=== PATIENT | male | born 1990 | race Caucasian/White ===

== ENCOUNTER 2017-10-13 17:50 | Emergency (ER) | payer BC ==
[2017-10-13] MEDS ORDERED: Sodium Chloride 0.9% 10 ML Syringe FLUSH PRN (18:19)
[2017-10-13] MEDS ORDERED: Sodium Chloride 0.9% 2.5 ML Syringe FLUSH PRN (18:19)
[2017-10-13] MEDS ORDERED: MVI, Adult with Vitamin K 10 ML, Thiamine 100 MG, Folic Acid 1 MG in Sodium Chloride 0.... IV ONE ×4 (18:20)
--- NOTE | 2017-10-13 18:23 | EDM.PDOCBH ---
ED HPI GENERAL MEDICAL PROBLEM - General Chief Complaint: Drug or Alcohol Abuse Stated Complaint: ALCOHOL WITHDRAWALS Time Seen by Provider: 10/13/17 18:21 Source of Information: Reports: Patient History Limitations: Reports: No Limitations - History of Present Illness INITIAL COMMENTS - FREE TEXT/NARRATIVE: HISTORY AND PHYSICAL: []27-year-old male who has history of alcohol abuse he has been in treatment twice in [facility] reports to the emergency department today for help with his withdrawal symptoms History of Present Illness: []Patient has been drinking beer and vodka today to help "control his shakes" His girlfriend is at bedside Last treatment was in [place] in December and he started drinking in February and has been drinking off and on since then. Review of Systems: As per history of present illness and below otherwise all systems reviewed and negative. Past medical history: As per history of present illness and as reviewed below otherwise noncontributory. Surgical history: As per history of present illness and as reviewed below otherwise noncontributory. Social history: No reported history of drug or alcohol abuse. Family history: As per history of present illness and as reviewed below otherwise noncontributory. Physical exam: Alert gentleman who smells strongly of alcohol and appears intoxicated. He is answering questions appropriately to says that he wants help with the withdrawal symptoms he is having, but does not want to go back to treatment. HEENT: Atraumatic, normocehpalic, pupils reactive, negative for conjunctival pallor or scleral icterus, mucous membranes moist, throat clear, neck supple, nontender, trachea midline. Lungs: Clear to auscultation, breath sounds equal bilaterally, chest non tender. Heart: S1S2, regular, negative for clicks, rubs, or JVD. Abdomen: Soft, nondistended, nontender. Negative for masses or hepatossplenmegaly. Negative for costovertebral tenderness. Pelvis: Stable nontender. Genitourinary: Deferred. Rectal: Deferred Extremities: Atraumatic, negative for cords or calf pain. Neurovascular unremarkable. Neuro: Awake, alert, oriented. Cranial nerves II through XII unremarkable. Cerebellum unremarkable. Motor and sensory unremarkable throughout. Exam nonfocal. Discussed case with patient he does not want to go back through treatment Diagnostics: []CBC CMP P amylase lipase UA urine drug screen Therapeutics: []Banana Bag Impression: [Alcohol withdrawal] Plan: []Discharge to home Definitive disposition and diagnosis as appropriate pending reevaluation and review of above. no pain Pain Score (Numeric/FACES): 0 - Related Data Allergies Allergy/AdvReac Type Severity Reaction Status Date / Time No Known Allergies Allergy Verified 10/13/17 17:54 Home Meds: Home Meds . [No Known Home Meds] 10/13/17 [History] Past Medical History HEENT History: Reports: None Cardiovascular History: Reports: None Respiratory History: Reports: None Gastrointestinal History: Reports: None Genitourinary History: Reports: None Musculoskeletal History: Reports: None Neurological History: Reports: None Psychiatric History: Reports: Addiction, Anxiety, Depression Endocrine/Metabolic History: Reports: None Hematologic History: Reports: None Immunologic History: Reports: None Oncologic (Cancer) History: Reports: None Dermatologic History: Reports: None - Infectious Disease History Infectious Disease History: Reports: None - Past Surgical History Head Surgeries/Procedures: Reports: None Musculoskeletal Surgical History: Reports: Other (See Below) Other Musculoskeletal Surgeries/Procedures:: left leg surgery Social & Family History - Family History Family Medical History: Noncontributory - Tobacco Use Smoking Status *Q: Never Smoker - Caffeine Use Caffeine Use: Reports: Coffee - Recreational Drug Use Recreational Drug Use: No ED ROS GENERAL - Review of Systems Review Of Systems: ROS reveals no pertinent complaints other than HPI. ED EXAM, BEHAVIORAL HEALTH - Physical Exam Exam: See Below (See dictation) COURSE, BEHAVIORAL HEALTH COMP - Course Vital Signs: Last Vital Signs Temp 36.6 C 10/13/17 17:59 Pulse 102 H 10/13/17 20:20 Resp 18 10/13/17 20:20 BP 122/64 10/13/17 20:20 Pulse Ox 94 L 10/13/17 20:20 Orders, Labs, Meds: Active Orders 24 hr Category Date Time Status EKG Documentation Completion [RC] STAT Care 10/13/17 18:19 Active MVI, Adult with Vitamin K [Infuvite Adult] 10 ml Med 10/13/17 18:20 Active Thiamine [Vitamin B-1] 100 mg Folic Acid 1 mg Sodium Chloride 0.9% [Normal Saline] 1,000 ml IV ONETIME Sodium Chloride 0.9% [Saline Flush] Med 10/13/17 18:19 Active 10 ml FLUSH ASDIRECTED PRN Sodium Chloride 0.9% [Saline Flush] Med 10/13/17 18:19 Active 2.5 ml FLUSH ASDIRECTED PRN Saline Lock Insert [OM.PC] Stat Oth 10/13/17 18:19 Ordered Medication Orders Multivitamins/Minerals 10 ml/Thiamine HCl 100 mg/ Folic Acid 1 mg/ Sodium Chloride 1,011.2 mls @ 250 mls/hr IV ONETIME ONE Stop: 10/13/17 22:22 Last Admin: 10/13/17 18:45 Dose: 250 mls/hr Sodium Chloride (Saline Flush) 10 ml FLUSH ASDIRECTED PRN PRN Reason: Keep Vein Open Sodium Chloride (Saline Flush) 2.5 ml FLUSH ASDIRECTED PRN PRN Reason: Keep Vein Open Laboratory Tests 10/13/17 10/13/17 Range/Units 18:28 18:28 WBC 5.22 (4.0-11.0) K/uL RBC 5.24 (4.50-5.90) M/uL Hgb 16.7 (13.0-17.0) g/dL Hct 48.4 (38.0-50.0) % MCV 92.4 (80.0-98.0) fL MCH 31.9 (27.0-32.0) pg MCHC 34.5 (31.0-37.0) g/dL RDW Std Deviation 42.3 (28.0-62.0) fl RDW Coeff of Catalino 13 (11.0-15.0) % Plt Count 329 (150-400) K/uL MPV 10.10 (7.40-12.00) fL Neut % (Auto) 39.3 L (48.0-80.0) % Lymph % (Auto) 51.3 H (16.0-40.0) % [place] % (Auto) 6.9 (0.0-15.0) % Eos % (Auto) 1.5 (0.0-7.0) % Baso % (Auto) 1.0 (0.0-1.5) % Neut # (Auto) 2.1 (1.4-5.7) K/uL Lymph # (Auto) 2.7 H (0.6-2.4) K/uL [place] # (Auto) 0.4 (0.0-0.8) K/uL Eos # (Auto) 0.1 (0.0-0.7) K/uL Baso # (Auto) 0.1 (0.0-0.1) K/uL Nucleated RBC % 0.0 /100WBC Nucleated RBCs # 0 K/uL Sodium 146 (136-146) mmol/L Potassium 3.6 (3.5-5.1) mmol/L Chloride 111 H (98-110) mmol/L Carbon Dioxide 20 L (21-31) mmol/L BUN 5 L (6.0-23.0) mg/dL Creatinine 0.8 (0.6-1.5) mg/dL Est Cr Clr Drug Dosing 154.93 mL/min Estimated GFR (MDRD) > 60.0 ml/min Glucose 129 H (60-110) mg/dL Calcium 9.0 (8.8-10.8) mg/dL Total Bilirubin 0.3 (0.1-1.5) mg/dL AST 44 H (5-40) IU/L ALT 32 (8-54) IU/L Alkaline Phosphatase 118 (40-150) Total Protein 8.1 H (6.0-8.0) g/dL Albumin 4.7 (3.5-5.0) g/dL Globulin 3.4 (2.0-3.5) g/dL Albumin/Globulin Ratio 1.4 (1.3-2.8) Amylase 35 (10-90) U/L Lipase 36 (7-80) U/L Medications Generic Name Dose Route Start Last Admin Trade Name Freq PRN Reason Stop Dose Admin Multivitamins/Minerals 10 ml/ 1,011.2 mls @ 250 mls/hr 10/13/17 18:20 18:45 Thiamine HCl 100 mg/ Folic IV 10/13/17 22:22 250 mls/hr Acid 1 mg/ Sodium Chloride ONETIME ONE Administration Sodium Chloride 10 ml 10/13/17 18:19 Saline Flush FLUSH ASDIRECTED PRN Keep Vein Open Sodium Chloride 2.5 ml 10/13/17 18:19 Saline Flush FLUSH ASDIRECTED PRN Keep Vein Open Discontinued Medications Generic Name Dose Route Start Last Admin Trade Name Freq PRN Reason Stop Dose Admin Lorazepam 1 mg 10/13/17 19:19 10/13/17 19:28 Ativan IVPUSH 10/13/17 19:20 1 mg ONETIME ONE Administration Departure - Departure Time of Disposition: 21:39 Disposition: Home, Self-Care 01 Condition: Good Clinical Impression: Alcohol abuse - Discharge Information Instructions: Alcohol Use Disorder, Alcohol Intoxication, [id number] Referrals: PCP,None [Primary Care Provider] - Forms: ED Department Discharge Additional Instructions: The following information is given to patients seen in the emergency department who are being discharged to home. This information is to outline your options for follow-up care. We provide all patients seen in our emergency department with a follow-up referral. The need for follow-up, as well as the timing and circumstances, are variable depending upon the specifics of your emergency department visit. If you don't have a primary care physician on staff, we will provide you with a referral. We always advise you to contact your personal physician following an emergency department visit to inform them of the circumstance of the visit and for follow-up with them and/or the need for any referrals to a consulting specialist. The emergency department will also refer you to a specialist when appropriate. This referral assures that you have the opportunity for followup care with a specialist. All of these measure are taken in an effort to provide you with optimal care, which includes your followup. Under all circumstances we always encourage you to contact your private physician who remains a resource for coordinating your care. When calling for followup care, please make the office aware that this follow-up is from your recent emergency room visit. If for any reason you are refused follow-up, please contact the [facility] emergency department at and asked to speak to the emergency department charge nurse. Consider going back to alcohol treatment center [facility] does have a facility that will this - My Orders Last 24 Hours: My Active Orders 10/13/17 18:19 EKG Documentation Completion [RC] STAT Sodium Chloride 0.9% [Saline Flush] 10 ml FLUSH ASDIRECTED PRN Sodium Chloride 0.9% [Saline Flush] 2.5 ml FLUSH ASDIRECTED PRN Saline Lock Insert [OM.PC] Stat 10/13/17 18:20 MVI, Adult with Vitamin K [Infuvite Adult] 10 ml Thiamine [Vitamin B-1] 100 mg Folic Acid 1 mg Sodium Chloride 0.9% [Normal Saline] 1,000 ml IV ONETIME - Assessment/Plan Last 24 Hours: My Active Orders 10/13/17 18:19 EKG Documentation Completion [RC] STAT Sodium Chloride 0.9% [Saline Flush] 10 ml FLUSH ASDIRECTED PRN Sodium Chloride 0.9% [Saline Flush] 2.5 ml FLUSH ASDIRECTED PRN Saline Lock Insert [OM.PC] Stat 10/13/17 18:20 MVI, Adult with Vitamin K [Infuvite Adult] 10 ml Thiamine [Vitamin B-1] 100 mg Folic Acid 1 mg Sodium Chloride 0.9% [Normal Saline] 1,000 ml IV ONETIME
[2017-10-13 19:02] LABS: CHLORIDE,CL 111 mmol/L (98-110); SODIUM,NA 146 mmol/L (136-146)
[2017-10-13] MEDS ORDERED: LORazepam 2 MG/ML SDV IVPUSH ONE (19:19)
== END 2017-10-13 22:25 | disposition home or self-care (01) ==
LOC: MW.ED 17:50
DX: F10.230 Alcohol dependence with withdrawal, uncomplicated (principal)
CPT/HCPCS: 36415; 80053; 82150; 83690; 85025; 93005; 96365; 96366; 96375; 99285; J2060; J3411; J7040; 99282

== ENCOUNTER 2018-01-22 02:53 | Observation (INO) | payer BC ==
--- NOTE | 2018-01-22 02:57 | EDM.PDOC ---
ED HPI GENERAL MEDICAL PROBLEM - General Stated Complaint: INTOXICATION Time Seen by Provider: 01/22/18 02:56 Source of Information: Reports: Patient, EMS - History of Present Illness INITIAL COMMENTS - FREE TEXT/NARRATIVE: HISTORY AND PHYSICAL: History of present illness: [Patient with anxiety presents by EMS with a complaint of alcohol intoxication and anxiety Patient admits to drinking 4 beers since 7 PM he does not have any complaints such as fever nausea vomiting diarrhea constipation chest pain shortness breath headache dizziness palpitation no bowel or urine symptoms Is been alert and talkative up into the bathroom several times during his stay in no apparent distress he does not appear anxious whatsoever ] Review of systems: As per history of present illness and below otherwise all systems reviewed and negative. Past medical history: As per history of present illness and as reviewed below otherwise noncontributory. Surgical history: As per history of present illness and as reviewed below otherwise noncontributory. Social history: No reported history of drug or alcohol abuse. Family history: As per history of present illness and as reviewed below otherwise noncontributory. Physical exam: HEENT: Atraumatic, normocephalic, pupils reactive, negative for conjunctival pallor or scleral icterus, mucous membranes moist, throat clear, neck supple, nontender, trachea midline. Lungs: Clear to auscultation, breath sounds equal bilaterally, chest nontender. Heart: S1S2, regular, negative for clicks, rubs, or JVD. Abdomen: Soft, nondistended, nontender. Negative for masses or hepatosplenomegaly. Negative for costovertebral tenderness. Pelvis: Stable nontender. Genitourinary: Deferred. Rectal: Deferred. Extremities: Atraumatic, negative for cords or calf pain. Neurovascular unremarkable. Neuro: Awake, alert, oriented. Cranial nerves II through XII unremarkable. Cerebellum slightly ataxic gait Motor and sensory unremarkable throughout. Exam nonfocal. Diagnostics: [CBC CMP UA lipase troponin EKG Chest [address] no contrast ] Therapeutics: [Liter normal saline bolus ] Impression: [Anxiety Medication noncompliance Alcohol intoxication] Abrasion/contusion left forehead Definitive disposition and diagnosis as appropriate pending reevaluation and review of above. - Related Data Allergies Allergy/AdvReac Type Severity Reaction Status Date / Time No Known Allergies Allergy Verified 10/13/17 17:54 Home Meds: Home Meds . [No Known Home Meds] 10/13/17 [History] Past Medical History HEENT History: Reports: None Cardiovascular History: Reports: None Respiratory History: Reports: None Gastrointestinal History: Reports: None Genitourinary History: Reports: None Musculoskeletal History: Reports: None Neurological History: Reports: None Psychiatric History: Reports: Addiction, Anxiety, Depression Endocrine/Metabolic History: Reports: None Hematologic History: Reports: None Immunologic History: Reports: None Oncologic (Cancer) History: Reports: None Dermatologic History: Reports: None - Infectious Disease History Infectious Disease History: Reports: None - Past Surgical History Head Surgeries/Procedures: Reports: None Musculoskeletal Surgical History: Reports: Other (See Below) Other Musculoskeletal Surgeries/Procedures:: left leg surgery Social & Family History - Family History Family Medical History: Noncontributory - Tobacco Use Smoking Status *Q: Never Smoker - Caffeine Use Caffeine Use: Reports: Coffee - Recreational Drug Use Recreational Drug Use: No ED ROS GENERAL - Review of Systems Review Of Systems: ROS reveals no pertinent complaints other than HPI. ED EXAM, GENERAL - Physical Exam Exam: See Below Course - Vital Signs Last Recorded V/S: Last Vital Signs Temp 98.1 F 01/22/18 02:53 Pulse 111 H 01/22/18 02:53 Resp 18 01/22/18 02:53 BP 157/81 H 01/22/18 02:53 Pulse Ox 96 01/22/18 02:53 - Orders/Labs/Meds Orders: Active Orders 24 hr Category Date Time Status EKG Documentation Completion [RC] STAT Care 01/22/18 02:55 Active Vaccines to be Administered [RC] PER UNIT ROUTINE Care 01/22/18 03:00 Active Chest 1V Frontal [CR] Stat Exams 01/22/18 02:55 Taken Head wo Cont [CT] Stat Exams 01/22/18 03:00 Taken Sodium Chloride 0.9% [Normal Saline] 500 ml Med 01/22/18 03:00 Active IV STAT Medication Orders Sodium Chloride (Normal Saline) 500 mls @ 999 mls/hr IV STAT BIBI Last Admin: 01/22/18 03:37 Dose: 999 mls/hr Labs: Laboratory Tests 01/22/18 01/22/18 01/22/18 Range/Units 03:00 03:03 03:03 WBC 4.61 (4.0-11.0) K/uL RBC 4.99 (4.50-5.90) M/uL Hgb 15.8 (13.0-17.0) g/dL Hct 45.6 (38.0-50.0) % MCV 91.4 (80.0-98.0) fL MCH 31.7 (27.0-32.0) pg MCHC 34.6 (31.0-37.0) g/dL RDW Std Deviation 41.1 (28.0-62.0) fl RDW Coeff of Catalino 12 (11.0-15.0) % Plt Count 268 (150-400) K/uL MPV 10.40 (7.40-12.00) fL Neut % (Auto) 42.0 L (48.0-80.0) % Lymph % (Auto) 46.0 H (16.0-40.0) % [place] % (Auto) 8.7 (0.0-15.0) % Eos % (Auto) 2.4 (0.0-7.0) % Baso % (Auto) 0.9 (0.0-1.5) % Neut # (Auto) 1.9 (1.4-5.7) K/uL Lymph # (Auto) 2.1 (0.6-2.4) K/uL [place] # (Auto) 0.4 (0.0-0.8) K/uL Eos # (Auto) 0.1 (0.0-0.7) K/uL Baso # (Auto) 0.0 (0.0-0.1) K/uL Nucleated RBC % 0.0 /100WBC Nucleated RBCs # 0 K/uL Sodium 148 (136-148) mmol/L Potassium 4.0 (3.5-5.1) mmol/L Chloride 110 H (98-107) mmol/L Carbon Dioxide 25.2 (21.0-32.0) mmol/L BUN 9 (7.0-18.0) mg/dL Creatinine 0.8 (0.8-1.3) mg/dL Est Cr Clr Drug Dosing 150.34 mL/min Estimated GFR (MDRD) > 60.0 ml/min Glucose 100 (74-106) mg/dL Calcium 8.4 L (8.5-10.1) mg/dL Total Bilirubin 0.1 L (0.2-1.0) mg/dL AST 23 (15-37) U/L ALT 26 (14-63) U/L Alkaline Phosphatase 91 (46-116) U/L Troponin I < 0.050 (0.000-0.056) ng/mL Total Protein 8.1 (6.4-8.2) g/dL Albumin 4.6 (3.4-5.0) g/dL Globulin 8.1 H (2.0-3.5) g/dL Albumin/Globulin Ratio 0.0 L (1.3-2.8) Lipase 121 (73-393) U/L Urine Color YELLOW Urine Appearance CLEAR Urine pH 6.0 (5.0-8.0) Ur Specific [place] <= 1.005 (1.001-1.035) Urine Protein NEGATIVE (NEGATIVE) mg/dL Urine Glucose (UA) NEGATIVE (NEGATIVE) mg/dL Urine Ketones NEGATIVE (NEGATIVE) mg/dL Urine Occult Blood TRACE-INTACT (NEGATIVE) Urine Nitrite NEGATIVE (NEGATIVE) Urine Bilirubin NEGATIVE (NEGATIVE) Urine Urobilinogen 0.2 (<2.0) EU/dL Ur Leukocyte Esterase NEGATIVE (NEGATIVE) Urine RBC 0-1 (0-2/HPF) Urine WBC 0-1 (0-5/HPF) Ur Epithelial Cells RARE (NONE-FEW) Urine Bacteria RARE (NEGATIVE) Ethyl Alcohol 379 mg/dL Meds: Medications Generic Name Dose Route Start Last Admin Trade Name Freq PRN Reason Stop Dose Admin Sodium Chloride 500 mls @ 999 mls/hr 01/22/18 03:00 01/22/18 03:37 Normal Saline IV 999 mls/hr STAT BIBI Administration Discontinued Medications Generic Name Dose Route Start Last Admin Trade Name Freq PRN Reason Stop Dose Admin Diphtheria/Tetanus/Acell Pertussis 0.5 ml 01/22/18 03:00 01/22/18 03:39 Adacel IM 01/22/18 03:01 0.5 ml .ONCE ONE Administration Departure - Departure Time of Disposition: 04:50 Disposition: Refer to Observation Condition: Fair Clinical Impression: Alcohol intoxication - Discharge Information Referrals: PCP,None [Primary Care Provider] - - My Orders Last 24 Hours: My Active Orders 01/22/18 02:55 EKG Documentation Completion [RC] STAT Chest 1V Frontal [CR] Stat 01/22/18 03:00 Vaccines to be Administered [RC] PER UNIT ROUTINE Head wo Cont [CT] Stat Sodium Chloride 0.9% [Normal Saline] 500 ml IV STAT - Assessment/Plan Last 24 Hours: My Active Orders 01/22/18 02:55 EKG Documentation Completion [RC] STAT Chest 1V Frontal [CR] Stat 01/22/18 03:00 Vaccines to be Administered [RC] PER UNIT ROUTINE Head wo Cont [CT] Stat Sodium Chloride 0.9% [Normal Saline] 500 ml IV STAT
[2018-01-22] MEDS ORDERED: Sodium Chloride 0.9% 500 ML IV SCH (03:00)
[2018-01-22] MEDS ORDERED: Diphtheria,Pertussis(Acell),Tetanus Vaccine 0.5 ML Syringe IM ONE (03:00)
[2018-01-22 03:36] LABS: CHLORIDE,CL 110 mmol/L (98-107); SODIUM,NA 148 mmol/L (136-148)
[2018-01-22] MEDS ORDERED: MVI, Adult with Vitamin K 10 ML, Thiamine 100 MG, Folic Acid 1 MG in Sodium Chloride 0.... IV ONE ×4 (05:46)
--- NOTE | 2018-01-22 09:12 | PCM.HP ---
H&P History of Present Illness - General Date of Service: 01/22/18 Admit Problem/Dx: Admission Diagnosis/Problem Admission Diagnosis/Problem Alcohol intoxication Source of Information: Patient History Limitations: Reports: No Limitations - History of Present Illness Initial Comments - Free Text/Narative: This 27 year old male with pmh of alcohol abuse who recently finished a 30 day inpatient treatment program and [facility] presented to the ED last evening with EMS. He reports he was drinking all day with co-workers since it was a day. He does not remember falling but awoke and felt his head was pounding and he had an abrasion. He wanted to be checked out. He came to the ED and reportedly passed out in the ED. This morning he doesn't remember much from yesterday or last night. he remembers he came in to the ED because he fell and hit his head, again does not know how he fell nor does he recall it. He is feeling ill, hung over this morning. He reports he recently finished a 30 day inpatient treatment program for alcohol abuse and knows he needs to continue with sobriety but with the social pressures around him it is hard. He is well aware of the community resources of AA meetings, [facility]. He denies wanting placement in inpatient rehab currently this admission. He denies headache, more pain to abrasion on L forehead, no blurred vision, double vision. No nausea or vomiting. No chest pain or SOB. No abdominal pain or black or bloody BMs. He denies fevers at home. No other pain to legs or arms from fall. In the ED labwork WNL, Ua negative as well as U tox ETOH 379. Head CT negative for acute intracranial abnormality. and CXR negative as well. He was given bolus of IVFs in ED and admitted for observation after passing out in ED. He reports he should be taking Sertraline, which he was given after treatment. But he has not started taking it because he was told not to drink with it and wanted to continue to have a few drinks every once and while. - Related Data Allergies/Adverse Reactions: Allergies Allergy/AdvReac Type Severity Reaction Status Date / Time No Known Allergies Allergy Verified 10/13/17 17:54 Home Medications: Home Meds . [No Known Home Meds] 10/13/17 [History] Past Medical History HEENT History: Reports: None Cardiovascular History: Reports: Heart Murmur. Denies: Afib, Blood Clots/VTE/ DVT, High Cholesterol, Hypertension Respiratory History: Reports: None. Denies: Asthma, COPD, PE Gastrointestinal History: Reports: None. Denies: GERD, GI Bleed Genitourinary History: Reports: None. Denies: Chronic Renal Insuffiency Musculoskeletal History: Reports: None Neurological History: Reports: None. Denies: CVA, TIA Psychiatric History: Reports: Addiction, Anxiety, Depression Endocrine/Metabolic History: Reports: None. Denies: Diabetes, Type II Hematologic History: Reports: None Immunologic History: Reports: None Oncologic (Cancer) History: Reports: None Dermatologic History: Reports: None - Infectious Disease History Infectious Disease History: Reports: Chicken Pox - Past Surgical History Head Surgeries/Procedures: Reports: None Cardiovascular Surgical History: Reports: None Respiratory Surgical History: Reports: None GI Surgical History: Reports: None Male Surgical History: Reports: None Endocrine Surgical History: Reports: None Neurological Surgical History: Reports: Discectomy Musculoskeletal Surgical History: Reports: Other (See Below) Other Musculoskeletal Surgeries/Procedures:: left hand surgery, back surgery Social & Family History - Family History Family Medical History: Noncontributory - Tobacco Use Smoking Status *Q: Current Status Unknown Years of Tobacco use: 5 Used Tobacco, but Quit: No Month Tobacco Last Used: yesterday Tobacco Use Comment: chewing tobacco everyday, 1 can a day Second Hand Smoke Exposure: Yes - Caffeine Use Caffeine Use: Reports: Coffee, Soda - Alcohol Use Days Per Week of Alcohol Use: 4 Number of Drinks Per Day: 4 Total Drinks Per Week: 16 Date of Last Drink: 01/22/18 Time of Last Drink: 02:00 Alcohol Use Frequency: Daily - Recreational Drug Use Recreational Drug Use: No - Living Situation & Occupation Living situation: Reports: Occupation: Employed (works on a work over [employer] H&P Review of Systems - Review of Systems: Review Of Systems: See Below General: Reports: Malaise (feels hungover. "I've felt better"). Denies: Fever, Weakness HEENT: Reports: Other (pain to L forehead where abrasion is located). Denies: Headaches, Sinus Congestion Pulmonary: Reports: No Symptoms. Denies: Shortness of Breath Cardiovascular: Reports: No Symptoms. Denies: Chest Pain Gastrointestinal: Reports: No Symptoms. Denies: Abdominal Pain, Black Stool, Bloody Stool, Nausea Genitourinary: Reports: No Symptoms. Denies: Dysuria, Frequency, Burning, Pain Musculoskeletal: Reports: No Symptoms. Denies: Neck Pain, Back Pain, Leg Pain Psychiatric: Reports: No Symptoms. Denies: Confusion Neurological: Reports: No Symptoms. Denies: Confusion, Dizziness, Headache Exam - Exam Exam: See Below - Vital Signs Vital Signs: Last Vital Signs Temp 97.3 F 01/22/18 08:00 Pulse 87 01/22/18 08:00 Resp 20 01/22/18 08:00 BP 131/69 01/22/18 08:00 Pulse Ox 97 01/22/18 08:00 Weight: 88 kg - Exam General: Alert, Oriented, Cooperative HEENT: Conjunctiva Clear, Mucosa Moist & [place], Posterior Pharynx Clear Neck: Supple Lungs: Clear to Auscultation, Normal Respiratory Effort Cardiovascular: Regular Rate, Regular Rhythm, Systolic Murmur Extremities: Normal Inspection, Normal Range of Motion, Non-Tender, No Pedal Edema, Normal Capillary Refill Skin: Wound (abrasion, 0.5 in in circumference to L forehead near hairline. scant swelling noted, no drainage, fluctuance or erythema. Tenderness with palpation.) Neuro Extensive - Mental Status: Alert, Oriented x3, Normal Mood/Affect, Normal Cognition Neuro Extensive - Motor, Sensory, Reflexes: CN II-XII Intact Psychiatric: Alert, Normal Affect, Normal Mood - Patient Data Result Diagrams: 01/22/18 03:03 01/22/18 03:03 *Q Meaningful Use (ADM) - VTE *Q VTE Criteria *Q: - Stroke *Q Stroke Criteria *Q: - AMI *Q AMI Criteria *Q: - Problem List (1) Alcohol intoxication SNOMED Code(s): 87496558 ICD Code: F10.929 - ALCOHOL USE, UNSPECIFIED WITH INTOXICATION, UNSPECIFIED Status: Acute Current Visit: Yes Qualifiers: Complication of substance-induced condition: uncomplicated Qualified Code(s ): F10.920 - Alcohol use, unspecified with intoxication, uncomplicated (2) Forehead abrasion SNOMED Code(s): 880176211 ICD Code: S00.81XA - ABRASION OF OTHER PART OF HEAD, INITIAL ENCOUNTER Status: Acute Current Visit: Yes (3) Alcohol abuse SNOMED Code(s): 75239889 ICD Code: F10.10 - ALCOHOL ABUSE, UNCOMPLICATED Status: Chronic Current Visit: No (4) Generalized anxiety disorder SNOMED Code(s): 39711989 ICD Code: F41.1 - GENERALIZED ANXIETY DISORDER Status: Chronic Current Visit: Yes Problem List Initiated/Reviewed/Updated: Yes Orders Last 24hrs: Active Orders 24 hr Category Date Time Status Regular Diet [DIET] Diet 01/22/18 Breakfast Active MVI, Adult with Vitamin K [Infuvite Adult] 10 ml Med 01/22/18 05:46 Active Thiamine [Vitamin B-1] 100 mg Folic Acid 1 mg Sodium Chloride 0.9% [Normal Saline] 1,000 ml IV ONETIME Medication Orders Sodium Chloride (Normal Saline) 500 mls @ 999 mls/hr IV STAT BIBI Last Admin: 01/22/18 03:37 Dose: 999 mls/hr Multivitamins/Minerals 10 ml/Thiamine HCl 100 mg/ Folic Acid 1 mg/ Sodium Chloride 1,011.2 mls @ 150 mls/hr IV ONETIME ONE Stop: 01/22/18 12:30 Last Admin: 01/22/18 06:39 Dose: 150 mls/hr Assessment/Plan Comment:: This 27 year old male admitted with acute alcohol intoxication and fall. 1. Acute alcohol intoxication and fall: Alert this morning, Not feeling great but contributes this to heavy alcohol use yesterday. Discussed at length the need for continued sobriety and trying to stay clear of social pressures. He verablizes understanding. He was offered inpatient rehabilitation placement and he declined. He verbalizes community resources available to him, AA [facility]. He was appreciative of the discussion, because "It reminds him the importance of sobriety." Discussed him not taking Setraline and the importance of this as well to help with mood. He has prescription bottle at home, just hasn 't taken it yet. Will arrange follow up appointment for him to establish PCP in our area so someone can follow him for his anxiety and alcohol abuse. Discharge Plan: Dimitri will be discharged home today. Again encouraged to restart sobriety. He verbalizes the need for this and wanting to complete this. He will have follow up arranged with PCP for next week. He is to return to ED or clinic if any concerns should arise.
--- NOTE | 2018-01-22 11:22 | CT ---
EXAM DATE: 01/22/18 PATIENT'S AGE: 27 Patient: RONY BOJORQUEZ Facility: [place], [place] Site . Site : 1990 Study: CT Head wo cont [id number]/6/2018 3:33:14 AM Ordering Physician: Syed Stokes Final Report: INDICATION: ETOH-LACERATION TO FOREHEAD TECHNIQUE: CT Head without contrast. COMPARISON: None. FINDINGS: There is no sign of intracranial hemorrhage or mass effect. The shabazz-white differentiation is preserved. No abnormal intra-axial or extra-axial fluid collection. Mild mucoperiosteal thickening of the imaged right maxillary sinus. No acute disease of the mastoid air cells. No fracture evident. No scalp hematoma/laceration. IMPRESSION: No acute intracranial process. Dictated by: Nicholas Juárez MD @ 01/22/2018 03:36:59 (Electronic Signature) Report Signed by Proxy. [facility]
--- NOTE | 2018-01-22 11:23 | CR ---
EXAM DATE: 01/22/18 PATIENT'S AGE: 27 Patient: RONY BOJORQUEZ Facility: [place], [place] Site . Site : 1990 Study: XRay Chest [id number]/6/2018 3:33:33 AM Ordering Physician: Syed Stokes Final Report: INDICATION: ETOH TECHNIQUE: Chest 1 view COMPARISON: None FINDINGS: Cardiovascular and mediastinum: Heart size and vasculature are normal in caliber and appearance. Mediastinum is within normal limits. Lungs and pleural space: No focal consolidation. No sign of pleural effusion. No pneumothorax. Bones and soft tissues: No significant findings. IMPRESSION: No acute cardiopulmonary disease. Dictated by Nicholas Juárez MD @ 01/22/2018 3:37:34 AM Dictated by: Nicholas Juárez MD @ 01/22/2018 03:37:41 (Electronic Signature) Report Signed by Proxy. [facility]
== END 2018-01-22 11:10 | disposition home or self-care (01) ==
LOC: MW.ED 02:53 → MW.ICU 04:50 → MW.MS 06:38
PROVIDERS: ADMIT Internal Medicine; ATTEND Internal Medicine
DX: F10.920 Alcohol use, unspecified with intoxication, uncomplicated (principal); F41.1 Generalized anxiety disorder; F32.9 Major depressive disorder, single episode, unspecified; F17.220 Nicotine dependence, chewing tobacco, uncomplicated; S00.81XA Abrasion of other part of head, initial encounter; W19.XXXA Unspecified fall, initial encounter; Y90.8 Blood alcohol level of 240 mg/100 ml or more
CPT/HCPCS: 36415; 70450; 71045; 80053; 80305; 81001; 83690; 84484; 85025; 90471; 90715; 93005; 96361; 96374; 99285; G0378; G0480; J3411; J7040; 96360; 99284

== ENCOUNTER 2018-03-18 16:38 | Emergency (ER) | payer BC ==
--- NOTE | 2018-03-18 18:25 | EDM.PDOCBH ---
ED HPI GENERAL MEDICAL PROBLEM - General Chief Complaint: Drug or Alcohol Abuse Stated Complaint: ALCOHOL OVERDOSE Time Seen by Provider: 03/18/18 18:23 Source of Information: Reports: Patient, Family History Limitations: Reports: No Limitations - History of Present Illness INITIAL COMMENTS - FREE TEXT/NARRATIVE: HISTORY AND PHYSICAL: []28-year-old male presenting with alcoholic intoxication His found him on the floor at home History of Present Illness: His vomiting in the emergency department Patient started drinking at the age of 18 Patient started drinking every day at the age of 20 Admits to having at least 1 pint per day of whatever he can get Admits to having missed work because of drinking Review of Systems: As per history of present illness and below otherwise all systems reviewed and negative. Past medical history: As per history of present illness and as reviewed below otherwise noncontributory. Surgical history: As per history of present illness and as reviewed below otherwise noncontributory. Social history: No reported history of drug or alcohol abuse. Family history: As per history of present illness and as reviewed below otherwise noncontributory. Physical exam: Alert gentleman who has just finished vomiting again is requesting to go to treatment. HEENT: Atraumatic, normocehpalic, pupils reactive, negative for conjunctival pallor or scleral icterus, mucous membranes moist, throat clear, neck supple, nontender, trachea midline. Lungs: Clear to auscultation, breath sounds equal bilaterally, chest non tender. Heart: S1S2, regular, negative for clicks, rubs, or JVD. Abdomen: Soft, nondistended, nontender. Negative for masses or hepatossplenmegaly. Negative for costovertebral tenderness. Pelvis: Stable nontender. Genitourinary: Deferred. Rectal: Deferred Extremities: Atraumatic, negative for cords or calf pain. Neurovascular unremarkable. Neuro: Awake, alert, oriented. Cranial nerves II through XII unremarkable. Cerebellum unremarkable. Motor and sensory unremarkable throughout. Exam nonfocal. Discussed this case with Dr. Roman at [place] emergency room and he has accepted this patient for transfer. Patient and are agreeable to this recommended course of action Diagnostics: []CBC CMP EtOH chest x-ray one viewchest Amylase lipase Therapeutics: []IV fluids the eye Impression: []Acute intoxication ETOH abuse Plan: [][facility] detox and treatment Definitive disposition and diagnosis as appropriate pending reevaluation and review of above. Onset: Gradual - Related Data Allergies Allergy/AdvReac Type Severity Reaction Status Date / Time No Known Allergies Allergy Verified 10/13/17 17:54 Home Meds: Home Meds Sertraline [Zoloft] 25 mg PO DAILY 03/18/18 [History] Past Medical History HEENT History: Reports: None Cardiovascular History: Reports: Heart Murmur Respiratory History: Reports: None Gastrointestinal History: Reports: None Genitourinary History: Reports: None Musculoskeletal History: Reports: None Neurological History: Reports: None Psychiatric History: Reports: Addiction, Anxiety, Depression Endocrine/Metabolic History: Reports: None Hematologic History: Reports: None Immunologic History: Reports: None Oncologic (Cancer) History: Reports: None Dermatologic History: Reports: None - Infectious Disease History Infectious Disease History: Reports: Chicken Pox - Past Surgical History Head Surgeries/Procedures: Reports: None Cardiovascular Surgical History: Reports: None Respiratory Surgical History: Reports: None GI Surgical History: Reports: None Male Surgical History: Reports: None Endocrine Surgical History: Reports: None Neurological Surgical History: Reports: Discectomy Musculoskeletal Surgical History: Reports: Other (See Below) Other Musculoskeletal Surgeries/Procedures:: left hand surgery, back surgery Social & Family History - Family History Family Medical History: Noncontributory - Tobacco Use Smoking Status *Q: Current Every Day Smoker Years of Tobacco use: 6 Packs/Tins Daily: 1 Used Tobacco, but Quit: No Month/Year Tobacco Last Used: yesterday Second Hand Smoke Exposure: Yes - Caffeine Use Caffeine Use: Reports: Coffee, Energy Drinks, Soda - Alcohol Use Days Per Week of Alcohol Use: 4 Number of Drinks Per Day: 4 Total Drinks Per Week: 16 - Recreational Drug Use Recreational Drug Use: No - Living Situation & Occupation Living situation: Reports: Occupation: Employed (works on a work over [employer] ED ROS GENERAL - Review of Systems Review Of Systems: ROS reveals no pertinent complaints other than HPI. ED EXAM, BEHAVIORAL HEALTH - Physical Exam Exam: See Below (See dictation) COURSE, BEHAVIORAL HEALTH COMP - Course Vital Signs: Last Vital Signs Temp 36.7 C 03/18/18 17:42 Pulse 94 03/18/18 17:42 Resp 18 03/18/18 17:42 BP 160/88 H 03/18/18 17:42 Pulse Ox 98 03/18/18 17:42 Orders, Labs, Meds: Active Orders 24 hr Category Date Time Status EKG Documentation Completion [RC] STAT Care 03/18/18 18:26 Active Chest 1V Frontal [CR] Stat Exams 03/18/18 18:26 Ordered AMYLASE [CHEM] Stat Lab 03/18/18 18:26 Ordered COMPREHENSIVE METABOLIC PN,CMP [CHEM] Stat Lab 03/18/18 18:26 Ordered DRUG SCREEN, URINE [URCHEM] Stat Lab 03/18/18 18:26 Ordered ETOH [ETHANOL BLOOD MEDICAL] [CHEM] Stat Lab 03/18/18 18:26 Ordered LIPASE [CHEM] Stat Lab 03/18/18 18:26 Ordered SALICYLATE [CHEM] Stat Lab 03/18/18 18:26 Ordered UA W/MICROSCOPIC [URIN] Stat Lab 03/18/18 18:26 Ordered MVI, Adult with Vitamin K [Infuvite Adult] 10 ml Med 03/18/18 18:29 Active Thiamine [Vitamin B-1] 100 mg Folic Acid 1 mg Sodium Chloride 0.9% [Normal Saline] 1,000 ml IV ONETIME Sodium Chloride 0.9% [Saline Flush] Med 03/18/18 18:26 Active 10 ml FLUSH ASDIRECTED PRN Sodium Chloride 0.9% [Saline Flush] Med 03/18/18 18:26 Active 2.5 ml FLUSH ASDIRECTED PRN Saline Lock Insert [OM.PC] Stat Oth 03/18/18 18:26 Ordered Medication Orders Multivitamins/Minerals 10 ml/Thiamine HCl 100 mg/ Folic Acid 1 mg/ Sodium Chloride 1,011.2 mls @ 250 mls/hr IV ONETIME ONE Stop: 03/18/18 22:31 Sodium Chloride (Saline Flush) 10 ml FLUSH ASDIRECTED PRN PRN Reason: Keep Vein Open Sodium Chloride (Saline Flush) 2.5 ml FLUSH ASDIRECTED PRN PRN Reason: Keep Vein Open Laboratory Tests 03/18/18 Range/Units 18:40 WBC 6.17 (4.0-11.0) K/uL RBC 5.17 (4.50-5.90) M/uL Hgb 16.6 (13.0-17.0) g/dL Hct 46.8 (38.0-50.0) % MCV 90.5 (80.0-98.0) fL MCH 32.1 H (27.0-32.0) pg MCHC 35.5 (31.0-37.0) g/dL RDW Std Deviation 39.8 (28.0-62.0) fl RDW Coeff of Catalino 12 (11.0-15.0) % Plt Count 346 (150-400) K/uL MPV 10.50 (7.40-12.00) fL Neut % (Auto) 56.5 (48.0-80.0) % Lymph % (Auto) 35.8 (16.0-40.0) % Walsh % (Auto) 7.0 (0.0-15.0) % Eos % (Auto) 0.2 (0.0-7.0) % Baso % (Auto) 0.5 (0.0-1.5) % Neut # (Auto) 3.5 (1.4-5.7) K/uL Lymph # (Auto) 2.2 (0.6-2.4) K/uL Walsh # (Auto) 0.4 (0.0-0.8) K/uL Eos # (Auto) 0.0 (0.0-0.7) K/uL Baso # (Auto) 0.0 (0.0-0.1) K/uL Nucleated RBC % 0.0 /100WBC Nucleated RBCs # 0 K/uL Medications Generic Name Dose Route Start Last Admin Trade Name Freq PRN Reason Stop Dose Admin Multivitamins/Minerals 10 ml/ 1,011.2 mls @ 250 mls/hr 03/18/18 18:29 Thiamine HCl 100 mg/ Folic IV 03/18/18 22:31 Acid 1 mg/ Sodium Chloride ONETIME ONE Sodium Chloride 10 ml 03/18/18 18:26 Saline Flush FLUSH ASDIRECTED PRN Keep Vein Open Sodium Chloride 2.5 ml 03/18/18 18:26 Saline Flush FLUSH ASDIRECTED PRN Keep Vein Open Discontinued Medications Generic Name Dose Route Start Last Admin Trade Name Freq PRN Reason Stop Dose Admin Sodium Chloride 1,000 mls @ 999 mls/hr 03/18/18 18:26 03/18/18 18:40 Normal Saline IV 03/18/18 19:26 Not Given STAT ONE Ondansetron HCl 4 mg 03/18/18 18:26 03/18/18 18:42 Zofran IVPUSH 03/18/18 18:27 4 mg ONETIME ONE Administration Departure - Departure Time of Disposition: 18:50 Disposition: DC/Tfer to Acute Hospital 02 Condition: Fair Clinical Impression: Alcohol abuse Alcohol intoxication Qualifiers: Complication of substance-induced condition: uncomplicated Qualified Code(s): F10.920 - Alcohol use, unspecified with intoxication, uncomplicated - Discharge Information Referrals: PCP,None [Primary Care Provider] - Forms: ED Department Discharge Additional Instructions: The following information is given to patients seen in the emergency department who are being discharged to home. This information is to outline your options for follow-up care. We provide all patients seen in our emergency department with a follow-up referral. The need for follow-up, as well as the timing and circumstances, are variable depending upon the specifics of your emergency department visit. If you don't have a primary care physician on staff, we will provide you with a referral. We always advise you to contact your personal physician following an emergency department visit to inform them of the circumstance of the visit and for follow-up with them and/or the need for any referrals to a consulting specialist. The emergency department will also refer you to a specialist when appropriate. This referral assures that you have the opportunity for followup care with a specialist. All of these measure are taken in an effort to provide you with optimal care, which includes your followup. Under all circumstances we always encourage you to contact your private physician who remains a resource for coordinating your care. When calling for followup care, please make the office aware that this follow-up is from your recent emergency room visit. If for any reason you are refused follow-up, please contact the [facility] emergency department at and asked to speak to the emergency department charge nurse. Lipase is recommended with alcohol treatment - My Orders Last 24 Hours: My Active Orders 03/18/18 18:26 EKG Documentation Completion [RC] STAT Chest 1V Frontal [CR] Stat AMYLASE [CHEM] Stat COMPREHENSIVE METABOLIC PN,CMP [CHEM] Stat DRUG SCREEN, URINE [URCHEM] Stat ETOH [ETHANOL BLOOD MEDICAL] [CHEM] Stat LIPASE [CHEM] Stat SALICYLATE [CHEM] Stat UA W/MICROSCOPIC [URIN] Stat Sodium Chloride 0.9% [Saline Flush] 10 ml FLUSH ASDIRECTED PRN Sodium Chloride 0.9% [Saline Flush] 2.5 ml FLUSH ASDIRECTED PRN Saline Lock Insert [OM.PC] Stat 03/18/18 18:29 MVI, Adult with Vitamin K [Infuvite Adult] 10 ml Thiamine [Vitamin B-1] 100 mg Folic Acid 1 mg Sodium Chloride 0.9% [Normal Saline] 1,000 ml IV ONETIME - Assessment/Plan Last 24 Hours: My Active Orders 03/18/18 18:26 EKG Documentation Completion [RC] STAT Chest 1V Frontal [CR] Stat AMYLASE [CHEM] Stat COMPREHENSIVE METABOLIC PN,CMP [CHEM] Stat DRUG SCREEN, URINE [URCHEM] Stat ETOH [ETHANOL BLOOD MEDICAL] [CHEM] Stat LIPASE [CHEM] Stat SALICYLATE [CHEM] Stat UA W/MICROSCOPIC [URIN] Stat Sodium Chloride 0.9% [Saline Flush] 10 ml FLUSH ASDIRECTED PRN Sodium Chloride 0.9% [Saline Flush] 2.5 ml FLUSH ASDIRECTED PRN Saline Lock Insert [OM.PC] Stat 03/18/18 18:29 MVI, Adult with Vitamin K [Infuvite Adult] 10 ml Thiamine [Vitamin B-1] 100 mg Folic Acid 1 mg Sodium Chloride 0.9% [Normal Saline] 1,000 ml IV ONETIME
[2018-03-18] MEDS ORDERED: Ondansetron 4 MG/2 ML SDV IVPUSH ONE (18:26)
[2018-03-18] MEDS ORDERED: Sodium Chloride 0.9% 2.5 ML Syringe FLUSH PRN (18:26)
[2018-03-18] MEDS ORDERED: Sodium Chloride 0.9% 1,000 ML IV ONE (18:26)
[2018-03-18] MEDS ORDERED: Sodium Chloride 0.9% 10 ML Syringe FLUSH PRN (18:26)
[2018-03-18] MEDS ORDERED: MVI, Adult with Vitamin K 10 ML, Thiamine 100 MG, Folic Acid 1 MG in Sodium Chloride 0.... IV ONE ×4 (18:29)
[2018-03-18 19:06] LABS: CHLORIDE,CL 105 mmol/L (98-107); SODIUM,NA 147 mmol/L (136-148)
--- NOTE | 2018-03-19 08:38 | CR ---
EXAM DATE: 03/18/18 PATIENT'S AGE: 28 Patient: RONY BOJORQUEZ Facility: [place], [place] Site . Site : 1990 Study: XRay Chest [id number]/30/2018 7:43:11 PM Ordering Physician: Doctor Carr Final Report: INDICATION: Intoxicated for 3 days TECHNIQUE: Chest radiograph 1 view COMPARISON: 01/22/18 FINDINGS: Mediastinum: The heart silhouette is normal in size and morphology. The mediastinum is normal in appearance. Lungs: Both lungs are unremarkable in appearance. No sign of pleural effusion seen. No pneumothorax is identified. Bones and soft tissue: Unremarkable for age. IMPRESSION: 1. No acute cardiopulmonary disease is seen. Dictated by: Herbie Childs MD @ 03/18/2018 19:56:20 (Electronic Signature) Report Signed by Proxy. [facility]
== END 2018-03-18 19:55 ==
LOC: MW.ED 16:38
DX: F10.129 Alcohol abuse with intoxication, unspecified (principal); F41.9 Anxiety disorder, unspecified; F32.9 Major depressive disorder, single episode, unspecified; F17.210 Nicotine dependence, cigarettes, uncomplicated
CPT/HCPCS: 36415; 71045; 80053; 82150; 83690; 85025; 93005; 96361; 96374; 99285; G0480; J2405; J3411; J7040; 99284